=== PATIENT | male | born 1960 | race Caucasian/White ===

== ENCOUNTER → 2023-07-02 | Day surgery (SDC) | payer OTHER ==
[~2023-07-02] VITALS: Ht 182.8 cm; Wt 79.4 kg
[~2023-07-02] MED LIST: ASPIRIN ADULT L81 M2 PO; ASPIRIN ENTERIC COATED 81 MG TAB PO SCH; ATORVASTATIN CALCIUM 40 MG TABLET PO SCH; LIPITOR40 MG PO; Lactated Ringer's Solution 1,000 ML IV ONE; Lidocaine Hydrochloride 2% 10 ML AMP IM ONE; Midazolam Hydrochloride 2 MG/2 ML VIAL IV ONE; PROPOFOL 200 MG/20 ML VIAL IV ONE
[2023-07-02 09:40] VITALS: BP 152/90
[2023-07-02 13:04] VITALS: BP 122/75
[2023-07-02 13:19] VITALS: BP 139/83
[2023-07-02 13:34] VITALS: BP 142/89
== END | disposition home or self-care (01) ==
LOC: SDC 06-28 11:00
PROVIDERS: ATTEND Surgery
DX: Z12.11 Encounter for screening for malignant neoplasm of colon (principal); D12.0 Benign neoplasm of cecum; D12.3 Benign neoplasm of transverse colon; D12.5 Benign neoplasm of sigmoid colon; D12.2 Benign neoplasm of ascending colon; Z86.010 Personal history of colon polyps; Z80.0 Family history of malignant neoplasm of digestive organs; Z80.1 Family history of malignant neoplasm of trachea, bronchus and lung; Z80.42 Family history of malignant neoplasm of prostate; Z98.890 Other specified postprocedural states; Z79.899 Other long term (current) drug therapy